=== PATIENT | female | born 1990 | race African-American/Black ===

== ENCOUNTER 2015-12-27 14:22 | Outpatient (RCR) | payer OTHER ==
[~2015-12-27 14:22] MED LIST: FLONASE NASAL S16 GM; FLONASE NASAL S16 GM NS; FLOVENT 110MCG7.9 GM; PREDNISONE20 MG PO; PROAIR HFA0.09 MG/AC; PROAIR HFA0.09 MG/AC IH; SINGULAIR 110 MG/TAB; ZANTAC 7575 MG; ZYRTEC5 MG
== END 2016-03-26 ==
LOC: WSOH
DX: M25.521 Pain in right elbow (principal)

== ENCOUNTER 2019-03-27 11:59 | Emergency (ER) | payer OTHER ==
[~2019-03-27] VITALS: Ht 165.1 cm; Wt 148.2 kg
[2019-03-27 12:12] VITALS: BP 140/70; TEMP 97.2
[2019-03-27] MEDS ORDERED: TENORETIC 50 501 TAB PO (12:16)
[2019-03-27] MEDS ORDERED: FLEXERIL 1010 MG/TAB PO (13:55)
[2019-03-27 14:07] VITALS: PULSE 78
== END 2019-03-27 14:05 | disposition home or self-care (01) ==
LOC: COL.ER 11:59
DX: S16.1XXA Strain of muscle, fascia and tendon at neck level, initial encounter (principal); S46.811A Strain of other muscles, fascia and tendons at shoulder and upper arm level, right arm, initial encounter; J45.909 Unspecified asthma, uncomplicated; I10 Essential (primary) hypertension; R25.2 Cramp and spasm; F17.210 Nicotine dependence, cigarettes, uncomplicated; W50.0XXA Accidental hit or strike by another person, initial encounter; Y92.59 Other trade areas as the place of occurrence of the external cause
CPT/HCPCS: J1885

== ENCOUNTER 2020-06-03 10:13 | Day surgery (SDC) | payer OTHER ==
[2020-06-03] VITALS (9 sets, daily range): BP systolic 113–153; BP diastolic 75–102; PULSE 75–100; TEMP 98.4
[~2020-06-03] VITALS: Ht 165.1 cm; Wt 158.2 kg
[~2020-06-03 10:13] MED LIST changes: +FLEXERIL 1010 MG/TAB PO; +TENORETIC 50 501 TAB PO
[2020-06-03 11:13] LABS: HEMOGLOBIN 11.3 g/dl (12.5-16.0); MEAN CELL VOLUME 80 fl (80.0-100.0); MEAN CORPUSCULAR HEMOGLOBIN 25 pg (27.0-31.0); MEAN CORPUSCULAR HGB CONC 32 g/dl (33.0-37.0); MEAN PLATELET VOLUME 9.7 fl (7.4-10.4); PLATELET COUNT 529 K/mm3 (130-400); RED BLOOD COUNT 4.45 M/mm3 (4.10-5.30); REDCELL DISTRIBUTION WIDTH-CV 14.4 % (11.5-14.5)
[2020-06-03 11:21] LABS: HEMATOCRIT 35.7 % (37.0-47.0)
[2020-06-03 11:22] LABS: INR 1.1 (0.8-3.0); PROTHROMBIN TIME 12.4 SECONDS (9.7-12.8)
[2020-06-03 11:23] LABS: CREATININE, serum 0.57 (0.52-1.25); POTASSIUM 3.7 mmol/L (3.4-5.0)
[2020-06-03 11:25] LABS: PARTIAL THROMBOPLASTIN TIME 36.9 SECONDS (26.0-37.0)
[2020-06-03] MEDS ORDERED: ASPIRIN E.C. 8181 MG PO (11:30)
[2020-06-03] MEDS ORDERED: ALBUTEROL0.83 MG/ML IH (11:30)
--- NOTE | 2020-06-03 12:33 | NUR ---
SEE MERGE FOR ALL MEDICATION ADMINISTRATION TIMES, INTRA AND POST SEDATION ASSESSMENT
--- NOTE | 2020-06-03 14:20 | NUR ---
Report given to ALESSANDRA Johnson so she may take over cares of pt at this time.
--- NOTE | 2020-06-03 16:25 | NUR ---
Air was removed from TR band by nurses Elizabeth and Jael in 2-4 ml increments without bleeding or issue. Site now dressed with gaze and bandaid by this nurse. DC instructions reviewed, pt expresses understanding. IV DC'd with catheter intact, site wrapped with coban. She is assisted out to friend's car by wheelchair.
== END 2020-06-03 16:20 | disposition home or self-care (01) ==
LOC: COL.CAR 10:13
PROVIDERS: Internal Medicine Interventional Cardiology
DX: R07.89 Other chest pain (principal); R94.39 Abnormal result of other cardiovascular function study; I77.9 Disorder of arteries and arterioles, unspecified; I10 Essential (primary) hypertension; D47.3 Essential (hemorrhagic) thrombocythemia; F41.9 Anxiety disorder, unspecified; K21.9 Gastro-esophageal reflux disease without esophagitis; R06.02 Shortness of breath; Z79.82 Long term (current) use of aspirin; Z79.899 Other long term (current) drug therapy; Z20.822 Contact with and (suspected) exposure to COVID-19
CPT/HCPCS: J1644; J2250; J3010; Q9967

== ENCOUNTER 2020-06-19 15:17 | Emergency (ER) | payer OTHER ==
[~2020-06-19] VITALS: Ht 165.1 cm; Wt 158.6 kg
[~2020-06-19 15:17] MED LIST changes: +ALBUTEROL0.83 MG/ML IH; +ASPIRIN E.C. 8181 MG PO
[2020-06-19 15:22] VITALS: BP 136/93; TEMP 98.1
[2020-06-19] MEDS ORDERED: PREDNISONE20 MG PO (16:39)
[2020-06-19 16:58] VITALS: PULSE 100
== END 2020-06-19 16:59 | disposition home or self-care (01) ==
LOC: COL.ER 15:17
DX: G43.909 Migraine, unspecified, not intractable, without status migrainosus (principal); J45.901 Unspecified asthma with (acute) exacerbation; I10 Essential (primary) hypertension; Z79.51 Long term (current) use of inhaled steroids; Z79.82 Long term (current) use of aspirin
CPT/HCPCS: J0595; J1885

== ENCOUNTER 2021-01-28 15:18 | Emergency (ER) | payer OTHER ==
[~2021-01-28] VITALS: Ht 165.1 cm; Wt 154.5 kg
[2021-01-28 15:31] VITALS: TEMP 98.2
[2021-01-28] MEDS ORDERED: PREDNISONE20 MG PO (17:45)
[2021-01-28 18:08] VITALS: BP 129/90; PULSE 108
== END 2021-01-28 18:08 | disposition home or self-care (01) ==
LOC: COL.ER 15:18
DX: J20.9 Acute bronchitis, unspecified (principal); J45.901 Unspecified asthma with (acute) exacerbation; I10 Essential (primary) hypertension; Z79.899 Other long term (current) drug therapy; Z79.52 Long term (current) use of systemic steroids
CPT/HCPCS: J7512

== ENCOUNTER 2021-02-26 09:47 | Emergency (ER) | payer OTHER ==
[~2021-02-26] VITALS: Ht 165.1 cm; Wt 158.2 kg
[2021-02-26 09:58] VITALS: TEMP 97.7
[2021-02-26 10:17] LABS: COLLECTION METHOD CLEAN CATCH
[2021-02-26 10:22] LABS: MUCOUS Present (NOT PRESENT); PH 6 (5-8); SQUAMOUS EPITHELIAL 0-2 /hpf (0-10); URINE APPEARANCE Hazy (CLEAR/HAZY); URINE BACTERIA Rare (NONE SEEN); URINE BILIRUBIN Negative (NEGATIVE); URINE BLOOD 1+ (NEGATIVE); URINE COLOR Yellow (YELLOW); URINE GLUCOSE Negative (NEGATIVE); URINE KETONE Negative (NEGATIVE); URINE LEUKOCYTE ESTERASE Trace (NEGATIVE); URINE NITRATE Negative (NEGATIVE); URINE PROTEIN(semi-quant) Negative (NEGATIVE); URINE RBC 0-2 /hpf (0-2); URINE UROBILINOGEN Negative (NEGATIVE)
[2021-02-26 10:35] LABS: BASO # 0.1 K/mm3 (0.0-0.2); BASO % 0.8 % (0.0-2.0); EOS # 0.2 K/mm3 (0.0-0.7); EOS % 2.1 % (0-4.0); GRAN % 53.1 % (42.2-75.2); HEMATOCRIT 38.6 % (37.0-47.0); LYMPH # 2.8 K/mm3 (1.2-3.4); LYMPH % 37.1 % (20.0-51.0); MEAN CELL VOLUME 78 fl (80.0-100.0); MEAN CORPUSCULAR HEMOGLOBIN 24 pg (27.0-31.0); MEAN CORPUSCULAR HGB CONC 31 g/dl (33.0-37.0); MEAN PLATELET VOLUME 9.9 fl (7.4-10.4); MONO # 0.5 K/mm3 (0.1-0.6); MONO % 6.6 % (1.7-9.3); PLATELET COUNT 691 K/mm3 (130-400); RED BLOOD COUNT 4.95 M/mm3 (4.10-5.30); REDCELL DISTRIBUTION WIDTH-CV 15.6 % (11.5-14.5)
[2021-02-26 10:55] LABS: ALBUMIN 3.7 gm/dL (3.5-5.0); BILIRUBIN,TOTAL 0.5 mg/dL (0.2-1.2); CALCIUM 9.7 mg/dL (8.4-10.2); CREATININE, serum 0.74 mg/dL (0.57-1.11); POTASSIUM 3.9 mmol/L (3.5-4.5)
[2021-02-26] MEDS ORDERED: PERCOCET 325 MG1 TA2 PO (12:11)
[2021-02-26 13:31] VITALS: BP 108/70; PULSE 83
== END 2021-02-26 13:31 | disposition home or self-care (01) ==
LOC: COL.ER 09:47
PROVIDERS: Physician Assistant
DX: K63.89 Other specified diseases of intestine (principal); D64.9 Anemia, unspecified; R31.9 Hematuria, unspecified; I10 Essential (primary) hypertension; J45.909 Unspecified asthma, uncomplicated; Z87.442 Personal history of urinary calculi; Z32.02 Encounter for pregnancy test, result negative; Z79.899 Other long term (current) drug therapy
CPT/HCPCS: J1885; Q9967

== ENCOUNTER 2022-12-26 10:20 | Emergency (ER) | payer OTHER ==
[~2022-12-26] VITALS: Ht 12.7 cm; Wt 147.7 kg
[~2022-12-26 10:20] MED LIST changes: +PERCOCET 325 MG1 TA2 PO
[2022-12-26 10:26] VITALS: TEMP 97.6
[2022-12-26 11:25] LABS: BASO % 0.5 % (0.0-2.0); EOS # 0.1 K/mm3 (0.0-0.7); EOS % 1.6 % (0.0-4.0); GRAN # 4.6 K/mm3 (1.4-6.5); GRAN % 59.5 % (42.2-75.2); HEMATOCRIT 37.2 % (37.0-47.0); HEMOGLOBIN 11.4 g/dl (12.5-16.0); LYMPH # 2.4 K/mm3 (1.2-3.4); LYMPH % 31.5 % (20.0-51.0); MEAN CELL VOLUME 81 fl (80.0-100.0); MEAN CORPUSCULAR HEMOGLOBIN 25 pg (27-31); MEAN CORPUSCULAR HGB CONC 31 g/dl (33.0-37.0); MEAN PLATELET VOLUME 9.9 fl (7.4-10.4); MONO # 0.5 K/mm3 (0.1-0.6); MONO % 6.8 % (1.7-9.3); PLATELET COUNT 541 K/mm3 (130-400); REDCELL DISTRIBUTION WIDTH-CV 14.8 % (11.5-14.5)
[2022-12-26 11:44] LABS: ALBUMIN 3.4 gm/dL (3.5-5.0); BILIRUBIN,TOTAL 0.4 mg/dL (0.2-1.2); C-REACTIVE PROTEIN 3.33 mg/dL (0.00-0.50); CALCIUM 9.3 mg/dL (8.4-10.2); CREATININE, serum 0.67 mg/dL (0.57-1.11); POTASSIUM 3.6 mmol/L (3.5-4.5); TOTAL PROTEIN 7.6 gm/dL (6.2-8.1)
[2022-12-26 13:26] VITALS: BP 115/95; PULSE 95
== END 2022-12-26 13:26 | disposition home or self-care (01) ==
LOC: COL.ER 10:20
PROVIDERS: Physician Assistant
DX: R22.1 Localized swelling, mass and lump, neck (principal); D75.839 Thrombocytosis, unspecified; E66.9 Obesity, unspecified; Z87.891 Personal history of nicotine dependence; Z68.39 Body mass index [BMI] 39.0-39.9, adult
CPT/HCPCS: J1885; Q9967

== ENCOUNTER → 2023-03-04 | Outpatient (CLI) | payer OTHER | LOC: COL.LAB 09:52 | DX: J30.1 Allergic rhinitis due to pollen (principal) ==

== ENCOUNTER 2023-04-19 13:55 | Outpatient (RCR) | payer OTHER | END 2023-05-16 | LOC: WSOH | DX: S00.83XD Contusion of other part of head, subsequent encounter (principal); Y04.2XXD Assault by strike against or bumped into by another person, subsequent encounter; Y99.0 Civilian activity done for income or pay ==